=== PATIENT | male | born 1990 | race Two or more races ===

== ENCOUNTER 2020-01-16 12:30 | Emergency (ER) | payer OTHER ==
[~2020-01-16] VITALS: Ht 172.7 cm; Wt 72.6 kg
[2020-01-16 13:07] VITALS: Ht 172.7 cm; Wt 72.6 kg
[2020-01-16 13:54] VITALS: BP 119/88
== END 2020-01-16 13:54 | disposition home or self-care (01) ==
LOC: ED 12:30
DX: J45.909 Unspecified asthma, uncomplicated (principal); Z20.828 Contact with and (suspected) exposure to other viral communicable diseases
CPT/HCPCS: U0003-CS